=== PATIENT | female | born 1965 | race Caucasian/White ===

== ENCOUNTER 2017-03-28 05:29 | Outpatient (CLI) | payer BC ==
[~2017-03-28] VITALS: Ht 177.8 cm; Wt 76.7 kg
[2017-03-28] MEDS ORDERED: AMIT25TA9 PO (11:26)
[2017-03-28] MEDS ORDERED: HYDR-3820 PO (11:26)
[2017-03-28] MEDS ORDERED: PROM25TA14 PO (11:26)
[2017-03-28] MEDS ORDERED: MELO15TA39 PO (11:26)
[2017-03-28] MEDS ORDERED: LANS30CA43 PO (11:26)
[2017-03-28] MEDS ORDERED: BUSP10TA95 PO (11:26)
[2017-03-28] MEDS ORDERED: ALPR0.254 PO (11:26)
== END 2017-03-28 11:32 ==
LOC: PREOP 05:29
PROVIDERS: ATTEND Orthopaedic Surgery
DX: Z01.818 Encounter for other preprocedural examination (principal); M54.9 Dorsalgia, unspecified

== ENCOUNTER 2017-04-04 06:08 | Day surgery (SDC) | payer BC ==
[~2017-04-04] VITALS: Ht 177.8 cm; Wt 76.7 kg
[~2017-04-04 06:08] MED LIST: ALPR0.254 PO; AMIT25TA9 PO; BUSP10TA95 PO; HYDR-3820 PO; LANS30CA43 PO; MELO15TA39 PO; PROM25TA14 PO
[2017-04-04] MEDS ORDERED: proPOfol 200 MG/20 ML (DIPRIVAN) VIAL IV ONE (06:42)
[2017-04-04] MEDS ORDERED: MIDAZOLAM 2 MG/2 ML (VERSED) VIAL ONE (06:42)
[2017-04-04] MEDS ORDERED: fentaNYL INJECTION 100 MCG/2 ML AMP ONE (06:42)
[2017-04-04] MEDS ORDERED: ceFAZolin 2 GM/NS 50 ML IV ONE (06:45)
[2017-04-04] MEDS ORDERED: LIDOCAINE PF 2% 5 ML (XYLOCAINE) VIAL ONE (06:48)
[2017-04-04] MEDS ORDERED: DEXMEDETOMIDINE 200 MCG/2 ML (PRECEDEX) VIAL IV ONE (06:50)
[2017-04-04] MEDS ORDERED: GENTAMICIN 40 MG/ML 2 ML INJ SDV ONE (06:53)
[2017-04-04] MEDS ORDERED: VANCOMYCIN 1000 MG/VIAL ONE (06:53)
[2017-04-04] MEDS ORDERED: LACTATED RINGERS 1,000 ML IV PRN (06:53)
[2017-04-04] MEDS ORDERED: BUP/EPI 0.5% 1:200,000 (MARCAINE) 10ML VIAL IJ ONE (06:53)
[2017-04-04] MEDS ORDERED: FAMOTIDINE 20MG/2ML IV (PEPCID) IV ONE (07:00)
[2017-04-04] MEDS ORDERED: ONDANSETRON 4 MG/2 ML (SDV) Z0FRAN IV ONE (07:00)
[2017-04-04] MEDS ORDERED: SEVOFLURANE (ULTANE) 15 ML INHAL SOLN ONE ×3 (07:05→09:03)
[2017-04-04 07:54] VITALS: BP 123/102
[2017-04-04] MEDS ORDERED: CYCLOBENZAPRINE 10 MG (FLEXERIL) TAB PO PRN (08:00)
[2017-04-04] MEDS ORDERED: BISACODYL 10 MG SUPP (DULCOLAX) PR PRN (08:00)
[2017-04-04] MEDS ORDERED: ALPRAZolam 0.25 MG (XANAX) TAB PO PRN (08:00)
[2017-04-04] MEDS ORDERED: BACITRACIN 100,000 UNIT/NS 1000 ML POUR BOTTLE IR ONE ×2 (08:00)
[2017-04-04] MEDS ORDERED: ONDANSETRON 4 MG/2 ML (SDV) Z0FRAN IV PRN (08:00)
[2017-04-04] MEDS ORDERED: PROMETHAZINE 25 MG (PHENERGAN) TAB PO PRN (08:00)
[2017-04-04] MEDS ORDERED: MIDAZOLAM 2 MG/2 ML (VERSED) VIAL IV ONE (08:00)
[2017-04-04] MEDS ORDERED: BISACODYL 5 MG (DULCOLAX) TABLET PO PRN (08:00)
[2017-04-04] MEDS ORDERED: ACETAMINOPHEN 325 MG TABLET/CAPLET (TYLENOL) PO PRN (08:00)
[2017-04-04] MEDS ORDERED: DEXAMETHASONE 10 MG/ML (DECADRON) 1 ML VIAL ONE (08:12)
[2017-04-04] MEDS ORDERED: NS (IVPB) 100 ML ONE (09:03)
[2017-04-04] MEDS ORDERED: fentaNYL INJECTION 100 MCG/2 ML AMP IVP PRN (09:15)
[2017-04-04] MEDS ORDERED: morphine INJ 10 MG/ML 1ML (SYR OR VIAL) IVP PRN (09:15)
[2017-04-04] MEDS ORDERED: PROMETHAZINE INJ 25 MG/ML (PHENERGAN) AMP IVP PRN (09:15)
[2017-04-04] MEDS ORDERED: ONDANSETRON 4 MG/2 ML (SDV) Z0FRAN IVP PRN (09:15)
[2017-04-04 10:10] VITALS: BP 140/86
[2017-04-04] MEDS: SENNOSIDES 8.6 MG (SENOKOT) TAB PO SCH ×3 (10:35→20:42)
[2017-04-04] MEDS: FAMOTIDINE 20 MG (PEPCID) TABLET PO SCH ×2 (10:56→20:42)
[2017-04-04] MEDS: oxyCODONE/APAP 5/325MG (PERCOCET 5) TABLET PO PRN ×3 (11:15→22:27)
--- NOTE | 2017-04-04 11:49 | Diagnostic Imaging Report ---
EXAMINATION: Intraoperative view of the spine. INDICATION: Spinal stimulator placement. FLUOROSCOPY TIME: 15 seconds of fluoroscopy time was provided. IMPRESSION: There is a spine stimulator placed with the epidural entry site appearing to be at the T9-10 level. Dictated by: Dictated on workstation # [id number]
[2017-04-04 12:23] VITALS: BP 148/88
[2017-04-04] MEDS: DOCUSATE SODIUM 100 MG (COLACE) CAP PO SCH ×2 (13:06→20:42)
[2017-04-04] MEDS: busPIRone 10 MG (BUSPAR) TAB PO SCH (13:06)
--- NOTE | 2017-04-04 14:55 | OPERATIVE REPORT ---
DATE OF SERVICE: SURGEON: Myesha Eugene DO QUALITY IMPROVEMENT CONSULTANT: KRISTYN Diego. This is a medically necessary procedure. Nuclear Engineer is necessary for retraction of vital neurovascular structures. Without an assistant executive housekeeper, the procedure would not be possible. PREOPERATIVE DIAGNOSES: 1. Neuropathic pain syndrome. 2. Lumbar radiculopathy. POSTOPERATIVE DIAGNOSES: 1. Neuropathic pain syndrome. 2. Lumbar radiculopathy. PROCEDURES PERFORMED: 1. Placement of thoracic paddle lead spinal cord stimulator via thoracic laminotomies. 2. Placement of pulse generator. 3. Complex programing. COMPLICATIONS: None. SPECIMENS: None. ESTIMATED BLOOD LOSS: Minimal. DRAINS PLACED: None. ANESTHESIA: General endotracheal tube anesthesia with local anesthetic. HISTORY OF PRESENT ILLNESS: The patient is a very pleasant 51-year-old female, who presented to me after having a percutaneous trial spinal cord stimulator. She did enjoy the benefits of this and appreciated significant pain relief. She understood the risks and benefits of placement of permanent paddle lead. She wished to proceed. OPERATION: The patient was identified by name on wrist band in the preoperative holding area. The operative site was signed and consent was signed. SCDs were placed. Neuro monitor was hooked up. Antibiotics were started. She was taken to the operating room theater, placed under general endotracheal tube anesthesia and transferred to the operating room table in the prone position. She was prepped and draped in usual sterile fashion. Formal time-out was conducted. At this point, a midline thoracic incision was made, bilateral subperiosteal dissection ensued and I exposed the target level which was T7-8. I did the laminotomy at T8-9 using a high speed bur, Kerrison rongeurs and gained access to the epidural space. I then placed a [employer] Penta lead in the midline position directly over the T7-8 disk space. I tested this with neuro monitoring and the [employer] [place] rep and we were able to achieve equal left and right lower extremity stimulation, therefore I anchored the lead into the thoracic fascia. At this point, I made a right-sided lower lumbar incision for the pulse generator. I bluntly dissected this out. I used the passer to pass the lead from the thoracic incision to the lumbar incision. I then connected the pulse generator, finally tightened it, buried it into the pocket. I tested this with the [employer] [place] rep and the connection was successful. At this point, I irrigated both wounds, maintained hemostasis, placed the pulse generator deep within the pocket. I closed both wounds utilizing 0 Vicryl followed by 2-0 Vicryl followed by running 3-0 subcuticular stitch. I applied dressings, took the patient in the supine position to the PACU where she awoke without incident. She tolerated the procedure well. The plan at this time is to admit the patient for IV antibiotics, IV pain control and postoperative monitoring. The plan will be to discharge her tomorrow. She has to avoid any bending, twisting, pushing, pulling. Keep her wound clean and dry, change the dressings daily. Job ID: [id number] DocumentID: [id number] Dictated Date: 04/04/2017 08:50:59 Marine Cargo Surveyor Date: 04/04/2017 14:54:45 Dictated By: MYESHA EUGENE DO
[2017-04-04] MEDS: ceFAZolin INJECTION 1,000 MG in NS (IVPB) 50 ML IV SCH ×2 (15:03→22:27)
[2017-04-04] MEDS ORDERED: OXYC-197 PO (15:16)
--- NOTE | 2017-04-04 15:18 | Discharge Inst-Simple/Standard ---
Discharge Inst-Standard Discharge Medications New, Converted or Re-Newed RX: RX on Chart Patient Instructions/Follow Up Plan of Care/Instructions/FU: FOLLOW UP IN CLINIC IN 2 WEEKS DONT BEND LIFT TWIST PUSH PULL DONT DRIVE KEEP INCISIONS CLEAN AND DRY Activity as Tolerated: No Discharge Diet: No Restrictions Return to The Hospital For: WEAKNESS, NEW NUMBNESS OR TINGLING FEVER CHILLS SHORTNESS OF BREATH CHEST PAIN ARELIS WILLIS Apr 04, 2017 15:18
[2017-04-04 16:00] VITALS: BP 148/88
[2017-04-04] MEDS: morphine INJ 4 MG/ML 1 ML (VIAL/SYRINGE) IVP PRN ×3 (17:32→22:27)
[2017-04-04 20:00] VITALS: BP 128/76
[2017-04-04] MEDS ORDERED: AMITRIPTYLINE 25 MG (ELAVIL) TAB PO SCH (21:00)
[2017-04-05] VITALS: BP 121/56
[2017-04-05 04:25] VITALS: BP 124/62
[2017-04-05] MEDS: morphine INJ 4 MG/ML 1 ML (VIAL/SYRINGE) IVP PRN ×3 (04:32→09:04)
[2017-04-05 05:22] LABS: MEAN PLATELET VOLUME 10.6 FL (7.4-10.4); RED BLOOD COUNT 3.98 10^6/uL (4.35-5.85); RED CELL DISTRIBUTION WIDTH 12.4 % (10.0-14.5); WHITE BLOOD COUNT 12.5 10^3/uL (4.3-11.0)
[2017-04-05 05:40] LABS: ALANINE AMINOTRANSFERASE 28 U/L (0-55); ALBUMIN 3.8 GM/DL (3.2-4.5); ANION GAP 9 MMOL/L (5-14); ASPARTATE AMINO TRANSFERASE 57 U/L (5-34); BILIRUBIN,TOTAL 0.3 MG/DL (0.1-1.0); BLOOD UREA NITROGEN 13 MG/DL (7-18); BUN/CREATININE RATIO 17; CALCIUM 8.9 MG/DL (8.5-10.1); CARBON DIOXIDE 19 MMOL/L (21-32); CHLORIDE 108 MMOL/L (98-107); CREATININE SERUM 0.77 MG/DL (0.60-1.30); GFR ESTIMATED > 60; GLUCOSE 139 MG/DL (70-105); SODIUM 136 MMOL/L (135-145); TOTAL PROTEIN 7.6 GM/DL (6.4-8.2)
[2017-04-05] MEDS: ceFAZolin INJECTION 1,000 MG in NS (IVPB) 50 ML IV SCH (05:41)
[2017-04-05 06:44] LABS: POTASSIUM 4.1 MMOL/L (3.6-5.0)
[2017-04-05 08:00] VITALS: BP 131/66
[2017-04-05] MEDS: SENNOSIDES 8.6 MG (SENOKOT) TAB PO SCH (09:04)
[2017-04-05] MEDS: DOCUSATE SODIUM 100 MG (COLACE) CAP PO SCH (09:04)
[2017-04-05] MEDS: FAMOTIDINE 20 MG (PEPCID) TABLET PO SCH (09:04)
[2017-04-05] MEDS: busPIRone 10 MG (BUSPAR) TAB PO SCH (09:04)
[2017-04-05 09:20] VITALS: BP 131/66
--- NOTE | 2017-04-05 09:41 | Physical Therapy Progress Note ---
Therapy Progress Note Patient dismissed prior to PT evaluation. ROMINA ANN PT Apr 05, 2017 09:41
== END 2017-04-05 09:20 | disposition home or self-care (01) ==
LOC: SDC 06:08 → 4TH 10:10 → EDSTATUS 12:00 → 4TH 15:40 → SDC 04-05 09:20
PROVIDERS: ATTEND Orthopaedic Surgery
DX: M54.16 Radiculopathy, lumbar region (principal); G89.4 Chronic pain syndrome; I10 Essential (primary) hypertension; K21.9 Gastro-esophageal reflux disease without esophagitis; Z79.899 Other long term (current) drug therapy; Z87.891 Personal history of nicotine dependence
CPT/HCPCS: 36415; 76937; 80053; 85027; 87081; 94664; 94760